=== PATIENT | male | born 1955 | race Caucasian/White ===

== ENCOUNTER → 2019-04-22 | Outpatient (CLI) | payer OTHER ==
[~2019-04-22] MED LIST: IOHEXOL 180 MG/ML 10 ML VIAL. INT ART ONE; LIDOCAINE 1% Multi-Dose 20 ML VIAL. ID ONE
--- NOTE | 2019-04-22 14:47 | KCIC ---
CT of arthrogram of the left shoulder Indication: Left shoulder pain. Rotator cuff tear. Injury 2 or 3 months ago. Exposure: One or more of the following individualized dose reduction techniques were utilized for this examination: 1. Automated exposure control 2. Adjustment of the mA and/or kV according to patient size 3. Use of iterative reconstruction technique. Technique: Routine imaging after intra-articular contrast demonstration with multiplanar reconstruction. FINDINGS: Acromioclavicular joint is degenerative with small undersurface osteophytes indenting the supraspinatus. Very small linear contrast filled defect across the anterior supraspinatus tendon compatible with a narrow but full-thickness tear, coronal series 604 images 14 through 17 and sagittal series 603, images 7-10. No retraction. Measures less than 1 cm. Mild contrast accumulation in the subdeltoid bursa presumably through this defect. No acute glenohumeral articular cartilage defect or advanced chondral thinning is seen. Mild contrast extension into the superior labrum likely due to a small tear. Biceps tendon appears grossly unremarkable. No evidence of dislocation. No acute fracture. No aggressive bone destruction. IMPRESSION: 1. Very thin linear full-thickness nonretracted rotator cuff tear at the anterior supraspinatus tendon. 2. Small superior labral tear. Electronically signed by: Ghulam Ellis MD (04/22/2019 2:44 PM) [id number]
--- NOTE | 2019-04-22 17:30 | KCIC ---
Left shoulder contrast injection using fluoroscopic guidance prior to CT History: Left shoulder pain, left rotator cuff tear, injury 2 or 3 months ago. Technique: The procedure and associated risks, including infection, bleeding or allergic reaction, were explained to the patient. Informed written consent was obtained. Time-out procedure was performed. The anterior shoulder was prepped and draped in usual sterile manner. Local anesthetic was obtained with lidocaine. A 22 gauge needle was advanced without difficulty into the glenohumeral joint. After negative aspiration, a mixture of 15 cc Omnipaque 180 contrast and 5 cc 1 percent lidocaine mixture was injected without difficulty, to a total volume of 12 cc. Needle was removed. Patient tolerated the procedure well without immediate complication and left in stable condition. Patient was given instructions to contact their physician, or go to the emergency room, this if there are any unexpected complications, which were explained. A single spot image was obtained. Fluoroscopy time: ?22 seconds Electronically signed by: Ghulam Ellis MD (04/22/2019 5:27 PM) [id number]
== END | disposition home or self-care (01) ==
LOC: KCIC 10:37
PROVIDERS: ATTEND Orthopaedic Surgery Sports Medicine
DX: S46.011D Strain of muscle(s) and tendon(s) of the rotator cuff of right shoulder, subsequent encounter (principal); S43.431D Superior glenoid labrum lesion of right shoulder, subsequent encounter; M25.712 Osteophyte, left shoulder; X58.XXXD Exposure to other specified factors, subsequent encounter
CPT/HCPCS: 73040; 73201; Q9965